=== PATIENT | female | born 1980 | race Caucasian/White ===

== ENCOUNTER 2020-05-26 23:04 | Inpatient (IN) | payer OTHER ==
[2020-05-27 00:20] LABS: BASOPHIL 0.5 % (0-2); EOSINOPHIL 6.7 % (0-5); HCT 38.9 % (37.0-47.0); HGB 12.8 g/dl (12.5-16.0); LYMPHOCYTE 18.3 % (15-48); MCH 26.4 pg (25.0-31.0); MCHC 32.9 g/dL (32.0-36.0); MCV 80.2 fL (78.0-100.0); MONOCYTE 8.7 % (0-12); MPV 10.6 fL (6.0-9.5); NEUTROPHIL 61.6 % (41-80); NRBC 0; PLT 268 K/uL (150-400); RBC 4.85 M/uL (4.20-5.40); RDW 14.4 % (11.5-14.0); WBC 8.4 K/uL (4.0-10.5)
[2020-05-27 00:40] LABS: BILIRUBIN - TOTAL 0.4 mg/dL (0.2-1.0); BUN/CREAT RATIO (CALC) 11.8 RATIO; CREATININE 0.68 mg/dL (0.51-0.95); GLOBULIN (CALCULATION) 4.7 g/dL; POTASSIUM 2.8 mmol/L (3.5-5.1); TOTAL PROTEIN 7.7 g/dL (6.4-8.2)
[2020-05-27 00:50] LABS: LACTIC ACID 2.5 mmol/L (0.4-1.9)
[2020-05-27 01:05] LABS: CORONAVIRUS 2019 SARS-COV-2 POSITIVE (NEGATIVE); INFLUENZA A NAA NEGATIVE (NEGATIVE)
[2020-05-27 02:51] LABS: BILIRUBIN NEGATIVE (NEGATIVE); BLOOD NEGATIVE Ery/uL (NEGATIVE); CLARITY CLEAR (CLEAR); COLOR YELLOW (YELLOW); GLUCOSE (U) NORMAL (NORMAL); LEUKOCYTES NEGATIVE Leu/uL (NEGATIVE); NITRITE NEGATIVE (NEGATIVE); PROTEIN NEGATIVE (NEGATIVE); SPECIFIC GRAVITY <=1.005 (1.001-1.030); UROBILINOGEN 0.2 mg/dL (0.2-1.0); pH 6.5 (5.0-9.0)
[2020-05-27 08:35] LABS: BASOPHIL 0.6 % (0-2); EOSINOPHIL 6.9 % (0-5); HCT 36.1 % (37.0-47.0); HGB 11.9 g/dl (12.5-16.0); MCH 26.6 pg (25.0-31.0); MCV 80.6 fL (78.0-100.0); MPV 10.5 fL (6.0-9.5); NRBC 0; PLT 259 K/uL (150-400); RBC 4.48 M/uL (4.20-5.40); RDW 14.4 % (11.5-14.0); WBC 7.8 K/uL (4.0-10.5)
[2020-05-27 08:37] LABS: LYMPHOCYTE 29.4 % (15-48)
[2020-05-27 08:47] LABS: BUN/CREAT RATIO (CALC) 12.1 RATIO; CREATININE 0.58 mg/dL (0.51-0.95); POTASSIUM 3.2 mmol/L (3.5-5.1)
[2020-05-27] MEDS ORDERED: LEVAQUIN750 MG PO (16:33)
[2020-05-27] MEDS ORDERED: PREDNISONE 20MG20 MG PO (16:33)
[2020-05-27] MEDS ORDERED: VENTOLIN HFA IN18 GM INH (16:34)
[2020-05-27] MEDS ORDERED: ONDANSETRON HCL4 MG PO (16:35)
[2020-05-27] MEDS ORDERED: COLD & COUGH E118 ML PO (16:39)
[2020-05-27] MEDS ORDERED: SULFAMETHOXAZO1 EACH PO (16:40)
[2020-05-27] MEDS ORDERED: SYNTHROID25 MCG PO (16:41)
[2020-05-27] MEDS ORDERED: PAXIL10 MG PO (16:42)
[2020-05-27] MEDS ORDERED: NORCO 5-325 TA1 EACH PO ×2 (16:43→16:44)
[2020-05-27] MEDS ORDERED: METFORMIN HCL1000 M1 PO (16:43)
[2020-05-27] MEDS ORDERED: PRAVASTATIN SOD10 MG PO (16:45)
[2020-05-27] MEDS ORDERED: ZESTRIL5 MG PO (16:46)
[2020-05-28 03:44] LABS: BASOPHIL 0.6 % (0-2); EOSINOPHIL 3.3 % (0-5); HCT 34.8 % (37.0-47.0); HGB 11.2 g/dl (12.5-16.0); LYMPHOCYTE 28.6 % (15-48); MCH 26.1 pg (25.0-31.0); MCHC 32.2 g/dL (32.0-36.0); MCV 81.1 fL (78.0-100.0); MONOCYTE 7.3 % (0-12); MPV 10.5 fL (6.0-9.5); NRBC 0; PLT 324 K/uL (150-400); RBC 4.29 M/uL (4.20-5.40); RDW 14.4 % (11.5-14.0); WBC 11.5 K/uL (4.0-10.5)
[2020-05-28 03:46] LABS: NEUTROPHIL 55.4 % (41-80)
[2020-05-28 04:01] LABS: C-REACTIVE PROTEIN 2.7 mg/dL (<=0.90); CREATININE 0.5 mg/dL (0.51-0.95); POTASSIUM 3.5 mmol/L (3.5-5.1)
[2020-05-28] MEDS ORDERED: ZINC SULFATE220 M1 PO (12:37)
[2020-05-28] MEDS ORDERED: MEDROL 4MG DOSEP4 MG PO (12:37)
[2020-05-28] MEDS ORDERED: TESSALON PERLE100 MG PO (12:37)
[2020-05-28] MEDS ORDERED: MELATONIN5 M2 PO (12:37)
[2020-05-28] MEDS ORDERED: AZITHROMYCIN250 MG PO (12:37)
[2020-05-28] MEDS ORDERED: ASCORBIC ACID500 MG PO (12:37)
[2020-05-28] MEDS ORDERED: HYDROCODONE-CH473 ML PO (12:40)
== END 2020-05-28 17:30 | disposition home or self-care (01) | DRG 177 ==
LOC: FER 23:04 → FMS 05-27 02:48
PROVIDERS: Allergy & Immunology Allergy; Emergency Medicine; Nurse Practitioner; ADMIT Internal Medicine
PROC: XW033E5 Introduction of Remdesivir Anti-infective into Peripheral Vein, Percutaneous Approach, New Technology Group 5 (ICD-10-PCS; principal; 2020-05-27)
PROC: 3E0333Z Introduction of Anti-inflammatory into Peripheral Vein, Percutaneous Approach (ICD-10-PCS; 2020-05-27)
PROC: 8E0ZXY6 Isolation (ICD-10-PCS; 2020-05-27)
DX: U07.1 COVID-19 (principal); J12.82 Pneumonia due to coronavirus disease 2019; E87.2 Acidosis; C54.1 Malignant neoplasm of endometrium; E87.6 Hypokalemia; I10 Essential (primary) hypertension; E11.9 Type 2 diabetes mellitus without complications; E78.5 Hyperlipidemia, unspecified; J45.909 Unspecified asthma, uncomplicated; E86.0 Dehydration; R00.0 Tachycardia, unspecified; R79.89 Other specified abnormal findings of blood chemistry; L53.8 Other specified erythematous conditions; Z88.5 Allergy status to narcotic agent; Z79.84 Long term (current) use of oral hypoglycemic drugs
CPT/HCPCS: 36415; 71045; 71275; 80048; 80053; 81003; 83036; 83605; 84484; 85025; 85379; 86140; 87040; 96372; C9399; G0378; J1650; J2543; J7030; J7050; J8540; Q9967; U0002